=== PATIENT | male | born 1970 | race Caucasian/White ===

== ENCOUNTER 2022-05-13 15:46 | Emergency (ER) | payer SELFPAY ==
[~2022-05-13] VITALS: Ht 154.9 cm; Wt 75.3 kg
[~2022-05-13 15:46] MED LIST: ASPI-1822 PO; ATOR40TA PO; BLOO1EAC40 MC; DEC4 PO; GLUC-805 FS; LANC-947 MC; LISI10TA30 PO; METF-346 PO; VITC500 PO; ZINC220C28 PO
[2022-05-13 16:07] VITALS: BP 162/89
--- NOTE | 2022-05-13 16:15 | NUR ---
PT WALKED IN C/O GENERALIZED BURNING SENSATION THAT GETS WORSE WHEN TOUCHED. STATES ONSET 4 MONTHS THAT GOT WORSE 1 MONTH AGO. DENIES RASH OR WOUNDS. PT REPORTS UNK CAUSE. AAO4, AMBULATORY. PMH: DM2
--- NOTE | 2022-05-13 16:15 | NUR ---
PT AMBULATED TO LOBBY
--- NOTE | 2022-05-13 17:15 | NUR ---
BLOOD DRAWN BY TELEVISION SPECIALIST
[2022-05-13 17:17] LABS: BASOPHILS % (AUTO) 0.5 % (0.0-2.0); EOSINOPHILS % (AUTO) 0.7 % (0.0-4.0); HEMATOCRIT 48.3 % (36-52); HEMOGLOBIN 16.9 g/dL (12.0-18.0); LYMPHOCYTES # (AUTO) 1.8 K/uL (2.0-11.5); LYMPHOCYTES % (AUTO) 24.6 % (20.5-51.1); MEAN CORPUSCULAR HEMOGLOBIN 30 pg (27-31); MEAN CORPUSCULAR HGB CONC 35 g/dL (33-37); MEAN CORPUSCULAR VOLUME 86.5 fL (80-94); MONOCYTES # (AUTO) 0.5 K/uL (0.8-1.0); NEUTROPHILS # (AUTO) 4.9 K/uL (1.8-7.7); NEUTROPHILS % (AUTO) 67.2 % (42.2-75.2); PLATELET COUNT (AUTO) 259 K/uL (140-450); RED BLOOD CELL COUNT(AUTO) 5.59 MIL/uL (4.20-6.10); RED CELL DISTRIBUTION WIDTH 13.3 % (11.6-13.7); WHITE BLOOD COUNT (AUTO) 7.2 K/uL (4.8-10.8)
--- NOTE | 2022-05-13 17:27 | NUR ---
EKG DONE AT BED 10.
[2022-05-13] MEDS ORDERED: DICYCLOMINE HCL LIQUID 20 MG, ALUMINUM HYD/MAG/SIMETHICONE 30 ML, LIDOCAINE VISCOUS 2% ... PO ONE ×3 (17:30)
[2022-05-13 17:31] LABS: ANION GAP 6.6 (8-16); ASPARTATE AMINOTRANSFERASE 12 U/L (15-37); CARBON DIOXIDE 31.6 mmol/L (21-32); CHLORIDE 98 mmol/L (98-107); CREATININE 0.8 mg/dL (0.6-1.3); GFR ARICAN-AMERICAN 130 mL/min (>90); GLUCOSE 333 mg/dL (74-106); POTASSIUM 4.2 mmol/L (3.5-5.1); SODIUM SERUM 132 mmol/L (136-145); TOTAL BILIRUBIN 0.4 mg/dL (0.0-1.0); UREA NITROGEN, BLOOD 12 mg/dL (7-18)
[2022-05-13] MEDS ORDERED: LISI5TAB18 PO ×2 (17:39→18:47)
[2022-05-13] MEDS ORDERED: METF-1139 PO ×2 (17:39→18:47)
[2022-05-13] MEDS ORDERED: FAMO-90 PO ×2 (17:40→18:47)
[2022-05-13] MEDS ORDERED: ALUMINUM HYD/MAG/SIMETHICONE 30 ML UDC ONE (17:46)
[2022-05-13] MEDS ORDERED: DICYCLOMINE HCL LIQUID 10 MG/5 ML UDC ONE (17:46)
== END 2022-05-13 18:10 | disposition home or self-care (01) ==
LOC: MED 15:46
DX: E11.65 Type 2 diabetes mellitus with hyperglycemia (principal); I10 Essential (primary) hypertension; R07.89 Other chest pain; Z79.4 Long term (current) use of insulin; Z79.899 Other long term (current) drug therapy
CPT/HCPCS: 36415; 71045; 80053; 84484; 85025; 93005; 99285